=== PATIENT | female | born 1990 | race Caucasian/White ===

== ENCOUNTER 2023-08-17 10:57 | Emergency (ER) | payer OTHER ==
[~2023-08-17] VITALS: Ht 165.1 cm; Wt 86.5 kg
[2023-08-17 11:09] VITALS: BP 112/76; TEMP 98.6
[2023-08-17 13:47] VITALS: PULSE 78
== END 2023-08-17 13:47 | disposition home or self-care (01) ==
LOC: COL.ER 10:57
DX: M79.604 Pain in right leg (principal); M79.605 Pain in left leg; Z79.82 Long term (current) use of aspirin; Z91.040 Latex allergy status